=== PATIENT | female | born 1955 | race African-American/Black ===

== ENCOUNTER 2019-04-25 12:23 | Emergency (ER) | payer BC ==
[~2019-04-25] VITALS: Ht 152.4 cm; Wt 76.2 kg
[~2019-04-25 12:23] MED LIST: LOTREL 10-20 M1 EACH PO; MOBIC15 MG PO; PROTONIX 20 MG20 M1 PO; TRAMADOL 50 MG50 MG PO; ZOFRAN4 MG PO
[2019-04-25] MEDS ORDERED: BENAZEPRIL-HCT1 EA10 PO (12:33)
[2019-04-25] MEDS ORDERED: PROTONIX40 M1 PO (12:33)
[2019-04-25] MEDS ORDERED: METFORMIN HCL500 MG PO (12:34)
[2019-04-25 12:38] LABS: ABSOLUTE BASOPHILS 0.1 thou/uL (0.0-0.2); ABSOLUTE EOSINOPHILS 0.1 thou/uL (0.0-0.7); ABSOLUTE LYMPHOCYTES 4.2 thou/uL (0.8-5.3); ABSOLUTE MONOCYTES 0.9 thou/uL (0.0-1.2); ABSOLUTE NEUTROPHILS 6.3 thou/uL (1.6-8.1); BASOPHILS 0.7 %; HEMATOCRIT 37.7 % (37.0-47.0); HEMOGLOBIN 11.9 gm/dL (12.0-15.0); LYMPHOCYTES 36.1 %; MCH 22.2 pg (26.0-34.0); MCHC 31.5 g/dL (28.0-37.0); MCV 70.3 fL (80.0-100.0); MONOCYTES 7.6 %; MPV 7.4 fl. (7.2-11.1); NUCLEATED RBCS 0 /100WBC; PLATELET COUNT* 408 thou/uL (150-400); POLYS 54.6 %; RBC 5.37 mil/uL (4.20-5.00); RDW-CV 14.9 % (10.5-14.5); WBC 11.6 thou/uL (4.0-11.0)
[2019-04-25 12:48] LABS: ANION GAP 11 mmol/L (7-16); BUN 17 mg/dL (7-18); CALCIUM 9.2 mg/dL (8.5-10.1); CHLORIDE 102 mmol/L (98-107); CO2 27 mmol/L (21-32); CREATININE 0.9 mg/dL (0.6-1.3); GLUCOSE 144 mg/dL (70-99); SODIUM 140 mmol/L (136-145)
[2019-04-25 12:59] LABS: ALBUMIN 3.8 g/dL (3.4-5.0); ALKALINE PHOSPHATASE 100 U/L (46-116); LIPASE 75 U/L (73-393); NT-PRO BRAIN NAT PEPTIDE 13 pg/mL (<300); SGOT 16 U/L (15-37); SGPT 23 U/L (30-65); TOTAL BILIRUBIN 0.4 mg/dL (<0.1-1.0); TOTAL PROTEIN 7.5 g/dL (6.4-8.2); TROPONIN-I LEVEL <0.06 ng/mL (<0.06)
[2019-04-25 13:02] LABS: URINE BILIRUBIN NEGATIVE (Negative); URINE BLOOD NEGATIVE (Negative); URINE CLARITY CLEAR; URINE COLOR YELLOW; URINE GLUCOSE-RANDOM NEGATIVE (Negative); URINE KETONES TRACE (Negative); URINE LEUKOCYTES-REFLEX 1+ (Negative); URINE NITRITE-REFLEX NEGATIVE (Negative); URINE PROTEIN NEGATIVE (Negative); URINE UROBILINOGEN 0.2 E.U./dl (0.2-1.0)
[2019-04-25 13:09] LABS: BACTERIA-REFLEX 1-9 Few /HPF (None Seen); CASTS None Seen /LPF (None Seen); CRYSTALS None Seen /LPF (None Seen); MUCUS 0-3 Light strn/LPF (None Seen); SQUAMOUS 4-10 Moderate /LPF (0-3); URINE RBC 0-2 Rare /HPF (0-2); URINE WBC-REFLEX 0-5 Rare /HPF (0-5)
[2019-04-25 13:50] VITALS: BP 135/71
--- NOTE | 2019-04-25 18:19 | EKG ---
[place] [address] ELECTROCARDIOGRAM REPORT Name: LORA PURI Room: [facility]#: [id number] Admission: 04/25/19 Attend Phys: Discharge: 04/25/19 Date of : 55 Report #: [id number] THIS REPORT FOR: //name// [facility] ED Test Date: 2019-04-25 Test Time: 12:38:46 Pat Name: LORA LOPEZ Department: Room: Gender: F Curb Attendant: : 1955 Requested By: Yang Layne Order Number: [id number] MD: Victor Manuel Jessica Measurements Intervals [place] Rate: 67 P: 43 OK: 172 QRS: 23 QRSD: 94 T: 71 QT: 416 QTc: 439 Interpretive Statements Sinus rhythm Nonspecific T abnrm, anterolateral leads, consider ischemia Compared to ECG 11/12/2013 17:32:15 T-wave abnormality no longer present Prolonged QT interval no longer present Electronically Signed On 04-25-2019 18:18:56 CDT by Victor Manuel Jessica [email or web address] <ELECTRONICALLY SIGNED> By: Victor Manuel Jessica MD, [facility] 04/25/19 1818 1238 1238 Victor Manuel Jessica MD, [facility] /EPI
== END 2019-04-25 13:50 | disposition home or self-care (01) ==
LOC: M.ERS 12:23
PROVIDERS: Physician Assistant
DX: E87.6 Hypokalemia (principal); R11.2 Nausea with vomiting, unspecified; K21.9 Gastro-esophageal reflux disease without esophagitis; M19.90 Unspecified osteoarthritis, unspecified site; I10 Essential (primary) hypertension; E11.9 Type 2 diabetes mellitus without complications